=== PATIENT | male | born 1985 | race Two or more races ===

== ENCOUNTER 2022-10-05 14:34 | Emergency (ER) | payer BC ==
[~2022-10-05] VITALS: Ht 177.8 cm; Wt 105.0 kg
[2022-10-05 14:35] VITALS: BP 142/82
[2022-10-05] MEDS ORDERED: iohexol 300mg/ml 100ml inj. ONE (16:07)
[2022-10-05] MEDS ORDERED: ampicillin inj 1 GM in normal saline 100ml IV soln 100 ML IV STA (18:20)
[2022-10-05] MEDS ORDERED: normal saline 1000ml 1,000 ML IV ONE (18:20)
[2022-10-05 18:57] LABS: BASOPHILS % (AUTO) 0.3 % (0-1); EOSINOPHILS % (AUTO) 0.2 % (0-6); HEMATOCRIT 44.5 % (42.0-52.0); HEMOGLOBIN 15.1 g/dl (14.0-17.9); LYMPHOCYTES % (AUTO) 32.8 % (21-51); MEAN CORPUSCULAR HEMOGLOBIN 30.2 PG (27.0-31.0); MEAN CORPUSCULAR VOLUME 88.9 FL (78-98); MEAN PLATELET VOLUME 7.8 FL (7.4-10.4); MONOCYTES # (AUTO) 0.5 X10'3 (0-0.9); MONOCYTES % (AUTO) 5.8 % (2-12); NEUTROPHILS # (AUTO) 5.5 X10'3 (1.8-7.7); NEUTROPHILS % (AUTO) 60.9 % (42-75); PLATELET COUNT 277 X10'3 (140-440)
[2022-10-05 19:03] LABS: ALANINE AMINOTRANSFERASE 24 U/L (12-78); ALBUMIN 4.6 G/DL (3.4-5.0); ALBUMIN/GLOBULIN RATIO 1.2 (1.1-1.5); ALKALINE PHOSPHATASE 89 IU/L (46-116); ANION GAP 6 (8-16); ASPARTATE AMINO TRANSFERASE 18 U/L (10-37); BILIRUBIN,TOTAL 0.6 MG/DL (0.1-1.0); BLOOD UREA NITROGEN 17 MG/DL (7-18); BUN/CREATININE RATIO 13.2 (10.0-20.0); CALCIUM 9.4 MG/DL (8.5-10.1); CHLORIDE 101 MMOL/L (99-107); CREATININE 1.29 MG/DL (0.60-1.10); GLUCOSE 107 MG/DL (70-104); POTASSIUM 4.4 MMOL/L (3.5-5.1); SODIUM 136 MMOL/L (135-145); TOTAL CARBON DIOXIDE 28.9 MMOL/L (24-32); TOTAL PROTEIN 8.6 G/DL (6.4-8.2); eGFR 62 ML/MIN
[2022-10-05] MEDS ORDERED: CLIN300C54 PO (21:27)
[2022-10-05] MEDS ORDERED: clindamycin 150mg capsule PO ONE (21:30)
--- NOTE | 2022-10-05 21:57 | NUR ---
iv dc'd pt being discharged dressing applied
== END 2022-10-05 21:58 | disposition short-term general hospital (02) ==
LOC: ER 14:34
DX: J35.1 Hypertrophy of tonsils (principal); Z20.822 Contact with and (suspected) exposure to COVID-19
CPT/HCPCS: 36415; 70491; 80053; 84145; 85025; 87081; 87811; 87880; 96365; 96366; 99285; J0290; J3490; J7030; Q9967